=== PATIENT | female | born 1950 | race Caucasian/White ===

== ENCOUNTER 2020-01-09 10:25 | Emergency (ER) | payer MEDICARE ==
[2020-01-09 10:38] VITALS: BP 144/55
[2020-01-09 11:05] LABS: Influenza A Molecular Negative (Negative); Influenza B Molecular Negative (Negative)
== END 2020-01-09 12:41 | disposition left against medical advice (07) ==
LOC: ED 10:25
DX: Z53.21 Procedure and treatment not carried out due to patient leaving prior to being seen by health care provider (principal); R68.89 Other general symptoms and signs
CPT/HCPCS: 99282